=== PATIENT | male | born 1950 | race Caucasian/White ===

== ENCOUNTER → 2018-02-09 15:17 | Outpatient (CLI) | payer MEDICARE, SELFPAY | LOC: LABSPEC 02-10 12:09 | PROVIDERS: Visit Provider Dermatology | DX: L72.0 Epidermal cyst (principal) | CPT/HCPCS: 87070; 87205 ==

== ENCOUNTER → 2020-07-28 15:37 | Outpatient (CLI) | payer MEDICARE, SELFPAY ==
--- NOTE | 2020-07-28 15:45 | RAD_ITS ---
STUDY: X-RAY - CERVICAL SPINE REASON FOR EXAM: Male, 70 years old. NECK PAIN TECHNIQUE: 4 view(s) of the cervical spine were obtained. COMPARISON: None FINDINGS: Normal anterior atlantoaxial articulation. Normal odontoid process. Straightening of the cervical lordosis. Severe degenerative changes of the vertebral bodies with partially fused C3-C5. Bridging osteophytes at the endplates. Obliterated C3-4 and C4-5 disc spaces. Limited evaluation of the lower cervical levels. The soft tissue structures are unremarkable. RAD/Cerv Spine 2 or 3 Views IMPRESSION: Degenerative changes of the visualized cervical spine. Electronically Signed: Ronaldo Yu DO at 16:05 EST Tel [phone], Service support ,
== END ==
PROVIDERS: PCP Family Medicine; Referring Provider Anesthesiology Pain Medicine; Visit Provider Anesthesiology Pain Medicine
DX: M54.2 Cervicalgia (principal); M54.12 Radiculopathy, cervical region; M54.13 Radiculopathy, cervicothoracic region
CPT/HCPCS: 72040